=== PATIENT | male | born 1995 | race Native Hawaiian/Other Pacific Islander ===

== ENCOUNTER 2017-03-20 22:41 | Emergency (ER) | payer BC ==
--- NOTE | 2017-03-20 23:36 | XRay Report ---
FINAL REPORT PROCEDURE: XR ANKLE 3+V RT TECHNIQUE: RIGHT ankle radiographs, AP, lateral, and oblique views. CPT 10100 HISTORY: SPRINED/SWELLING/RO FX of rt foot COMPARISON: No prior studies are available for comparison. FINDINGS: Fracture (s) and/or Dislocation(s): Acute oblique fracture is noted involving distal fibula or metaphysis with disruption of the ankle mortise resulting in medial displacement of the tibia and lateral displacement of the distal fibular fragment. Soft tissues: Moderate degree soft tissue swelling is noted. Bone mineralization: Normal. Foreign bodies: None. Calcaneal spurring: None. IMPRESSION: Fracture dislocation of ankle joint..
[2017-03-21] MEDS ORDERED: TORADOL IM ONE (00:11)
[2017-03-21] MEDS ORDERED: MORPHINE IM ONE (00:11)
[2017-03-21] MEDS ORDERED: ZOFRAN ODT PO ONE (00:11)
[2017-03-21] MEDS ORDERED: TORADOL ONE (00:14)
[2017-03-21] MEDS ORDERED: ZOFRAN ODT ONE (00:14)
[2017-03-21] MEDS ORDERED: MORPHINE ONE (00:15)
--- NOTE | 2017-03-21 00:47 | Emergency Department Report ---
ED Fall HPI - General Chief Complaint: Extremity Injury, Lower Stated Complaint: FOOT INJURY Time Seen by Provider: 03/20/17 23:44 Source: patient Mode of arrival: Ambulatory - History of Present Illness Initial Comments: 21 YO MALE WAS ROLLER SKATING AND FELL ON HIS RIGHT ANKLE . HE C/O RIGHT ANKLE PAIN AND SWELLING. NO LACERATIONS Complaint: fall -: Sudden When Fall Occurred: just prior to arrival Fall Witnessed: yes, by family, yes, by bystander Place Fall Occurred: other (ROLLER RINK) Loss of Consciousness: none Prolonged Down Time?: no Symptoms Prior to Fall: none Location: other (RIGHT ANKLE) - Related Data Previous Rx's Medication Instructions Recorded Last Taken Type oxyCODONE /ACETAMINOPHEN [Percocet 2 tab PO Q6HR PRN #48 tablet 03/21/17 Unknown Rx 5/325] Allergies Allergy/AdvReac Type Severity Reaction Status Date / Time cephalexin Allergy Unknown Verified 03/20/17 23:03 ED Review of Systems ROS: Stated complaint: FOOT INJURY Other details as noted in HPI Constitutional: denies: chills, fever Eyes: denies: eye pain, eye discharge, vision change ENT: denies: ear pain, throat pain Respiratory: denies: cough, shortness of breath, wheezing Cardiovascular: denies: chest pain, palpitations Endocrine: no symptoms reported Gastrointestinal: denies: abdominal pain, nausea, diarrhea Genitourinary: denies: urgency, dysuria Musculoskeletal: joint swelling, arthralgia. denies: back pain Skin: denies: rash, lesions Neurological: denies: headache, weakness, paresthesias Psychiatric: denies: anxiety, depression Hematological/Lymphatic: denies: easy bleeding, easy bruising ED Past Medical Hx - Past Medical History Previous Medical History?: Yes Additional medical history: NEUROCYSTICOERCOSIS-2007(NOW RESOLVED), SEIZURES - Social History Smoking Status: Never Smoker Substance Use Type: None - Medications Home Medications: Home Medications Medication Instructions Recorded Confirmed Last Taken Type oxyCODONE /ACETAMINOPHEN [Percocet 2 tab PO Q6HR PRN #48 tablet 03/21/17 Unknown Rx 5/325] ED Physical Exam - General Limitations: No Limitations General appearance: alert, in no apparent distress - Head Head exam: Present: atraumatic, normocephalic - Eye Eye exam: Present: normal appearance - ENT ENT exam: Present: mucous membranes moist - Neck Neck exam: Present: normal inspection - Respiratory Respiratory exam: Present: normal lung sounds bilaterally. Absent: respiratory distress - Cardiovascular Cardiovascular Exam: Present: regular rate, normal rhythm. Absent: systolic murmur, diastolic murmur, rubs, gallop - GI/Abdominal GI/Abdominal exam: Present: soft, normal bowel sounds. Absent: distended, tenderness - Rectal Rectal exam: Present: deferred - Extremities Exam Extremities exam: Present: normal inspection, tenderness (RIGHT ANKLE SWELLING , DISLOCATED ANKLE, FRACTURE, ERYTHEMA), normal capillary refill, joint swelling - Back Exam Back exam: Present: normal inspection, full ROM - Neurological Exam Neurological exam: Present: alert, oriented X3, CN II-XII intact - Psychiatric Psychiatric exam: Present: normal affect, normal mood - Skin Skin exam: Present: warm, dry, intact, normal color, other (NO LACERATION). Absent: rash ED Course Vital Signs 03/20/17 03/21/17 03/21/17 22:53 00:32 01:10 Temperature 98.2 F Temperature [ Post-Procedure] Temperature [ Pre-Procedure] Pulse Rate 101 H 64 Pulse Rate [ Intra-Procedure ] Pulse Rate [ Post-Procedure] Pulse Rate [Pre -Procedure] Respiratory 18 18 11 L Rate Respiratory Rate [Intra- Procedure] Respiratory Rate [Post- Procedure] Respiratory Rate [Pre- Procedure] Blood Pressure 139/82 Blood Pressure [Intra- Procedure] Blood Pressure [Post-Procedure ] Blood Pressure [Pre-Procedure] O2 Sat by Pulse 96 91 Oximetry O2 Sat by Pulse Oximetry [ Intra-Procedure ] O2 Sat by Pulse Oximetry [Post -Procedure] O2 Sat by Pulse Oximetry [Pre- Procedure] 03/21/17 03/21/17 03/21/17 01:15 01:20 01:26 Temperature Temperature [ Post-Procedure] Temperature [ Pre-Procedure] Pulse Rate 85 89 102 H Pulse Rate [ Intra-Procedure ] Pulse Rate [ Post-Procedure] Pulse Rate [Pre -Procedure] Respiratory 13 11 L 20 Rate Respiratory Rate [Intra- Procedure] Respiratory Rate [Post- Procedure] Respiratory Rate [Pre- Procedure] Blood Pressure 114/61 114/61 114/61 Blood Pressure [Intra- Procedure] Blood Pressure [Post-Procedure ] Blood Pressure [Pre-Procedure] O2 Sat by Pulse 95 97 94 Oximetry O2 Sat by Pulse Oximetry [ Intra-Procedure ] O2 Sat by Pulse Oximetry [Post -Procedure] O2 Sat by Pulse Oximetry [Pre- Procedure] 03/21/17 03/21/17 03/21/17 01:30 01:35 01:40 Temperature Temperature [ Post-Procedure] Temperature [ Pre-Procedure] Pulse Rate 105 H 89 93 H Pulse Rate [ Intra-Procedure ] Pulse Rate [ Post-Procedure] Pulse Rate [Pre -Procedure] Respiratory 18 14 18 Rate Respiratory Rate [Intra- Procedure] Respiratory Rate [Post- Procedure] Respiratory Rate [Pre- Procedure] Blood Pressure 80/47 121/65 118/71 Blood Pressure [Intra- Procedure] Blood Pressure [Post-Procedure ] Blood Pressure [Pre-Procedure] O2 Sat by Pulse 90 99 100 Oximetry O2 Sat by Pulse Oximetry [ Intra-Procedure ] O2 Sat by Pulse Oximetry [Post -Procedure] O2 Sat by Pulse Oximetry [Pre- Procedure] 03/21/17 03/21/17 03/21/17 01:46 01:50 01:55 Temperature Temperature [ 98.3 F Post-Procedure] Temperature [ 98.2 F Pre-Procedure] Pulse Rate 98 H 81 96 H Pulse Rate [ 93 H Intra-Procedure ] Pulse Rate [ 90 Post-Procedure] Pulse Rate [Pre 107 H -Procedure] Respiratory 11 L 15 21 Rate Respiratory 16 Rate [Intra- Procedure] Respiratory 18 Rate [Post- Procedure] Respiratory 16 Rate [Pre- Procedure] Blood Pressure 129/48 120/71 126/62 Blood Pressure 80/47 [Intra- Procedure] Blood Pressure 120/71 [Post-Procedure ] Blood Pressure 114/61 [Pre-Procedure] O2 Sat by Pulse 91 99 99 Oximetry O2 Sat by Pulse 92 Oximetry [ Intra-Procedure ] O2 Sat by Pulse 99 Oximetry [Post -Procedure] O2 Sat by Pulse 97 Oximetry [Pre- Procedure] - Reevaluation(s) Reevaluation #1: 03/21/17 03:06 CONSCIOUS SEDATION PERFORMED AND PT TOLERATED IT WELL. DR ZAMORA-[employer] [employer]GEON [facility]ABI AND HE WILL SEE PT IN CLINIC SUNDAY - Moderate Sedation Indications: fracture/dislocation redu ASA Class: I Mallampati Airway Score: 1 Preparation: ekg monitor applied, pulse oximeter, capnometry used, supplemental O2 applied, suction/airway equipment at bedside, IV secured IV Propofol Dose (mgs): 360 Complications: hypotension (BRIEF) Interventions: oxygen applied Patient Tolerated Procedure: well - Orthopedic Fracture Reduction Fracture #1 Consent Obtained: written consent Time Out Performed: Yes Side: right Fracture Reduction Location: fibula Analgesia: moderate sedation Technique: direct manipulation, traction/counter-traction, traction splint Post Reduction X-rays Demonstrate: anatomical reduction Post-Reduction Neuro Exam: intact Post-Reduction Vascular Exam: intact Splint Applied: Yes Patient Tolerated Procedure: well - Orthopedic Joint Reduction Joint #1 Consent Obtained: written consent Time Out Performed: Yes Side: right Joint Reduction Location: ankle Analgesia: moderate sedation Amount of Anesthetic Used (mls): 360 (PROPOFOL) Post-Reduction Neuro Exam: intact Post-Reduction Vascular Exam: intact Post Reduction X-Ray Obtained: Yes Post Reduction X-Ray Results: reduced Splint Applied: Yes Patient Tolerated Procedure: well - Orthopedic Splinting/Casting Injury #1 Side: right Lower Extremity Injury Location: ankle Lower Extremity Immobilizer: posterior splint, stirrup splint Other Orthopedic Equipment: crutches ED Medical Decision Making - Radiology Data Radiology results: report reviewed, image reviewed (RT ANKLE XRAY 3V; FRACTURES AND DISLOCATION; ACUTE OBLIQUE FRACTURE INVOLVING THE DISTAL FIBULA OR METAPHYSIS WITH DISRUPTION OF THE ANKLE MORTISE RESULTING IN MEDIAL DISRUPTION OF THE ANKLE MORTISE RESULTING IN MEDIAL DISPLACEMENT OF THE TIBIA AND LATERAL DISPLACEMENT OF THE DISTAL FIBULAR FRAGMENT, MODERATE SOFT TISSUE SWELLING;POST REDUCTION XRAY #1: STABLE MILDLY DISPLACED OBLIQUELY ORIENTED FRACTURE OF THE LATERAL MALLEOLUS WITHOUT ANGULATION, STILL ASYMMETRIC WIDENING OF THE TIBIOTALAR JOINT SPACE BOTH MEDIALLY AND ANTERIORLY, CAST IN PLACE : POST REDUCTIO XRAY #2:NONDISPLACED ACUTE OBLIQUELY ORIENTED FRACTURE OF THE LATERAL MALLEOLUS, SNKLE MORTISE APPEARS PROPERLY REALIGNED, CAST IN PLACE, SATISFACTORY POSTREDUCTION FILMS) Critical care attestation.: If time is entered above; I have spent that time in minutes in the direct care of this critically ill patient, excluding procedure time. ED Disposition Clinical Impression: Dislocation of right ankle joint, initial encounter Displaced comminuted fracture of shaft of right fibula Qualifiers: Encounter type: initial encounter Fracture type: closed Qualified Code(s): S82.451A - Displaced comminuted fracture of shaft of right fibula, initial encounter for closed fracture Ankle pain, right Qualifiers: Chronicity: acute Qualified Code(s): M25.571 - Pain in right ankle and joints of right foot Disposition: DC-01 TO HOME OR SELFCARE Is pt being admited?: No Does the pt Need Aspirin: No Condition: Stable Instructions: Ankle Dislocation (ED), Ankle Fracture (ED) Additional Instructions: PLEASE CALL DR ZAMORA'S OFFICE TOMORROW FOR AN APPOINTMENT. THEY WILL GIVE YOU FOLLOW UP FOR SURGERY. Prescriptions: oxyCODONE /ACETAMINOPHEN [Percocet 5/325] 2 tab PO Q6HR PRN #48 tablet PRN Reason: Pain Referrals: PRIMARY CARE, [Primary Care Provider] - 3-5 Days Forms: Work/School Release Form(ED) Time of Disposition: 03:12
[2017-03-21] MEDS ORDERED: DIPRIVAN 10 MG/ML IV ONE ×5 (01:00→02:07)
[2017-03-21] MEDS ORDERED: DIPRIVAN 10 MG/ML 1,000 MG/100 ML BOTTLE IV ONE (01:14)
[2017-03-21] MEDS ORDERED: NACL 0.9% 1000 ML 1,000 ML ONE (01:35)
--- NOTE | 2017-03-21 01:54 | XRay Report ---
FINAL REPORT EXAM: XR ANKLE 2V RT HISTORY: post reduction RT ANKLE TECHNIQUE: Postreduction AP and lateral views of the right ankle were submitted. FINDINGS: There is a stable mildly displaced obliquely oriented fracture of the lateral malleolus without angulation. There stool asymmetric widening of the tibiotalar joint space both medially and anteriorly. There are no additional fractures. There is a cast in place. IMPRESSION: Postreduction films as described.
--- NOTE | 2017-03-21 02:11 | XRay Report ---
FINAL REPORT EXAM: XR ANKLE 2V RT HISTORY: post reduction #2 TECHNIQUE: Repeat AP and lateral views of the right ankle were obtained and compared to the earlier study. FINDINGS: There is a nondisplaced acute obliquely oriented fracture of the lateral malleolus. The ankle mortise appears properly realigned. The no additional fractures identified. There is overlying cast in place. IMPRESSION: Satisfactory postreduction films.
[2017-03-21 03:30] VITALS: BP 109/76
[2017-03-21] MEDS ORDERED: NACL 0.9% 1000 ML 1,000 ML IV ONE (05:04)
== END 2017-03-21 03:51 | disposition home or self-care (01) ==
LOC: ED 22:41
DX: S82.451A Displaced comminuted fracture of shaft of right fibula, initial encounter for closed fracture (principal); S93.04XA Dislocation of right ankle joint, initial encounter; Z88.1 Allergy status to other antibiotic agents; W19.XXXA Unspecified fall, initial encounter; Y93.51 Activity, roller skating (inline) and skateboarding; Y92.331 Roller skating rink as the place of occurrence of the external cause; Y99.9 Unspecified external cause status
CPT/HCPCS: 27781; 73600; 73610; 96372; 99284; J1885; J2270; J2704; J7030; Q0162